=== PATIENT | female | born 1985 | race American Indian/Alaskan Native ===

== ENCOUNTER 2019-02-03 08:29 | Emergency (ER) | payer SELFPAY ==
--- NOTE | 2019-02-03 11:23 | Emergency Department Report ---
ED Headache HPI - General Chief Complaint: Headache Stated Complaint: HBP/HEADACHE Time Seen by Provider: 02/03/19 11:11 Source: patient Exam Limitations: no limitations - History of Present Illness Initial Comments: 33-year-old female with history of hypertension, not currently on any blood pressure medications, presents to ED with headache since 5 AM. Patient states she woke up this morning with headache, also reports associated left-sided chest pain radiating into the left arm with left arm numbness and tingling. Reports mild shortness of breath. Patient reports nausea, no vomiting. Denies fever, abdominal pain, leg pain or swelling. EMS was called and patient was told that her blood pressure was elevated. Patient did not take anything for the headache prior to ED arrival. Patient reports the headache has improved substantially from 04/23 to 11/30 currently. States has not been on blood pressure medication in approximately 5 years. Has no PCP. Denies tobacco use, reports marijuana use. Timing/Duration: 4-6 hours Quality: severe, throbbing Modifying Factors: worse with: exposure to light, movement Associated Symptoms: nausea/vomiting. denies: confusion, fever/chills, stiff neck, vision changes Allergies/Adverse Reactions: Allergies codeine Allergy (Verified 02/03/19 08:40) Unknown Home Medications: Ambulatory Orders Pantoprazole [Protonix] 40 mg PO QDAY #30 tablet 02/03/19 Prednisone [predniSONE 10 mg (6-Day Pack, 21 Tabs)] 10 mg PO .TAPER #1 tab.ds.pk 02/03/19 amLODIPine [Norvasc] 10 mg PO DAILY #30 tab 02/03/19 hydroCHLOROthiazide [Hctz] 12.5 mg PO QDAY #30 capsule 02/03/19 ED Review of Systems ROS: Stated complaint: HBP/HEADACHE Other details as noted in HPI Comment: All other systems reviewed and negative Constitutional: denies: chills, fever Respiratory: shortness of breath Cardiovascular: chest pain Gastrointestinal: nausea. denies: abdominal pain, vomiting Musculoskeletal: other (denies leg pain or swelling) Neurological: headache, paresthesias ED Past Medical Hx - Past Medical History Previous Medical History?: No - Surgical History Past Surgical History?: Yes Additional Surgical History: c section - Social History Smoking Status: Never Smoker Substance Use Type: None - Medications Home Medications: Home Medications Medication Instructions Recorded Confirmed Last Taken Type Pantoprazole [Protonix] 40 mg PO QDAY #30 tablet 02/03/19 Unknown Rx Prednisone [predniSONE 10 mg 10 mg PO .TAPER #1 tab.ds.pk 02/03/19 Unknown Rx (6-Day Pack, 21 Tabs)] amLODIPine [Norvasc] 10 mg PO DAILY #30 tab 02/03/19 Unknown Rx hydroCHLOROthiazide [Hctz] 12.5 mg PO QDAY #30 capsule 02/03/19 Unknown Rx ED Physical Exam - General Limitations: No Limitations General appearance: alert, in no apparent distress - Head Head exam: Present: atraumatic, normocephalic - Eye Eye exam: Present: normal appearance, PERRL, EOMI - ENT ENT exam: Present: mucous membranes moist - Neck Neck exam: Present: normal inspection, full ROM. Absent: tenderness, mening ismus - Respiratory Respiratory exam: Present: normal lung sounds bilaterally. Absent: respiratory distress - Cardiovascular Cardiovascular Exam: Present: regular rate, normal rhythm - GI/Abdominal GI/Abdominal exam: Present: soft. Absent: distended, tenderness - Extremities Exam Extremities exam: Present: normal inspection - Neurological Exam Neurological exam: Present: alert, oriented X3, CN II-XII intact. Absent: motor sensory deficit - Psychiatric Psychiatric exam: Present: normal affect, normal mood - Skin Skin exam: Present: warm, dry, intact, normal color ED Course Vital Signs 02/03/19 02/03/19 02/03/19 08:40 11:37 13:26 Temperature 98.5 F Pulse Rate 65 64 64 Respiratory 16 16 16 Rate Blood Pressure 171/114 Blood Pressure 169/108 152/104 [Left] O2 Sat by Pulse 96 96 97 Oximetry 02/03/19 02/03/19 14:05 15:55 Temperature Pulse Rate 74 Respiratory 16 Rate Blood Pressure 160/105 Blood Pressure 141/88 [Left] O2 Sat by Pulse 96 Oximetry ED Medical Decision Making - Lab Data Result diagrams: 02/03/19 11:20 02/03/19 11:20 - EKG Data -: EKG Interpreted by Wi EKG shows normal: sinus rhythm, axis, intervals, QRS complexes, ST-T waves Rate: normal - EKG Data Interpretation: no acute changes - Radiology Data Radiology results: report reviewed, image reviewed - Medical Decision Making 33 yo F w/ ROBB, chest pain, elevated BP. Hydralazine given for BP control. EKG shows no ST changes, trop normal. Pt currently has no PCP, not on any BP meds. Will admit to hospitalist, Dr Zhao, for further management. - Differential Diagnosis ACS, CVA, HTN emergency Critical Care Time: Yes Critical care time in (mins) excluding proc time.: 35 Critical care attestation.: If time is entered above; I have spent that time in minutes in the direct care of this critically ill patient, excluding procedure time. Critical Care Time: 35 minutes ED Disposition Clinical Impression: Hypertensive emergency, Acute chest pain, Acute headache Disposition: OP ADMIT IP TO THIS HOSP Is pt being admited?: Yes Condition: Stable Instructions: Chest Pain (ED), Hypertension (ED) Prescriptions: hydroCHLOROthiazide [Hctz] 12.5 mg PO QDAY #30 capsule amLODIPine [Norvasc] 10 mg PO DAILY #30 tab Prednisone [predniSONE 10 mg (6-Day Pack, 21 Tabs)] 10 mg PO .TAPER #1 tab.ds.pk Pantoprazole [Protonix] 40 mg PO QDAY #30 tablet Referrals: PENELOPE MAGANAWESTON MD [facility] [Primary Care Provider] - 3-5 Days Time of Disposition: 13:07
[2019-02-03 11:32] LABS: Basophils % (Auto) 0.8 % (0.0-1.8); Eosinophils # (Auto) 0.2 K/mm3 (0.0-0.4); Eosinophils % (Auto) 3.8 % (0.0-4.3); Hematocrit 40.6 % (30.3-42.9); Hemoglobin 13.9 gm/dl (10.1-14.3); Lymphocytes # (Auto) 1.5 K/mm3 (1.2-5.4); Mean Corpuscular HGB Conc 34 % (30-34); Mean Corpuscular Volume 86 fl (79-97); Monocytes # (Auto) 0.3 K/mm3 (0.0-0.8); Monocytes % (Auto) 5.8 % (0.0-7.3); Platelet Count 265 K/mm3 (140-440); Red Cell Distribution Width 13.8 % (13.2-15.2)
[2019-02-03 11:42] LABS: INR 1.02 (0.87-1.13)
[2019-02-03 11:43] LABS: Partial Thromboplastin Time 29.5 Sec. (24.2-36.6)
[2019-02-03 11:51] LABS: BUN/Creatinine Ratio 27; Blood Urea Nitrogen 16 mg/dL (7-17); Calcium 8.6 mg/dL (8.4-10.2); Hemolysis Index 6
[2019-02-03] MEDS ORDERED: APRESOLINE IV ONE (12:07)
--- NOTE | 2019-02-03 13:01 | XRay Report ---
CHEST 1 VIEW 12:15 INDICATION / CLINICAL INFORMATION: MAIN: chest pain SINCE THIS MORNINIG. COMPARISON: None available. FINDINGS: SUPPORT DEVICES: None HEART / MEDIASTINUM: Heart appears mildly enlarged. Pulmonary vascularity appears slightly prominent for this upright view and may indicate mild congestion. LUNGS / PLEURA: No significant pulmonary or pleural abnormality. No pneumothorax. ADDITIONAL FINDINGS: No significant additional findings. IMPRESSION: Mild cardiomegaly and mild congestion are noted, unusual for the patient's age. Signer Name: Lalo Barbour MD Signed: 02/03/2019 12:57 PM Workstation Name: [id number]
--- NOTE | 2019-02-03 13:34 | Cat Scan Report ---
CT BRAIN: 02/03/2019 INDICATION / CLINICAL INFORMATION: headache. COMPARISON: None available. FINDINGS: BRAIN/INTRACRANIAL STRUCTURES: Unenhanced CT images of the brain demonstrate no evidence of acute int racranial abnormality. Ventricles and sulci are normal in size and shape. There is no evidence of acute ischemic injury, hemorrhage, or mass. There are no abnormal extra-axial fluid collections. EXTRACRANIAL STRUCTURES: Unremarkable. IMPRESSION: No acute abnormality. Negative unenhanced CT of the brain. All CT scans at this location are performed using dose reduction to ALARA by means of automated expos ure control. Signer Name: Hermes Ling MD Signed: 02/03/2019 1:29 PM Workstation Name: [id number]
[2019-02-03 13:51] LABS: Chol/HDL Ratio 3.97 %
[2019-02-03] MEDS ORDERED: SOLU-Medrol IV ONE (14:00)
[2019-02-03] MEDS ORDERED: NORVASC PO ONE (14:00)
[2019-02-03] MEDS ORDERED: HCTZ PO ONE (14:00)
--- NOTE | 2019-02-03 15:03 | Event Note ---
Date: 02/03/19 33 YO Female with HTN presents to ED for evaluation of Atypical chest pain. Pt seen and evaluated in ED and treated IAW chest pain protocol. Serial cardiac enzymes, ekg, telemetry were unremarkable for ischemia. Pt D dimer was normal. Pt found to have GERD and uncontrolled HTN. Pt medically optimized and discharged home. Pt instructed to f/u pcp 3-5 days with blood pressure log for medication reconciliation. Pt instructed to F/U cardiology 3-5 days for further testing. Pt counseled regarding low cholesterol and balanced diet, as well as increased physical activity at discharge. Pt counseled regarding cardiac risk factor reduction. - General Limitations: No Limitations General appearance: alert, in no apparent distress - Head Head exam: Present: atraumatic, normocephalic - Eye Eye exam: Present: normal appearance, PERRL, EOMI - ENT ENT exam: Present: mucous membranes moist - Neck Neck exam: Present: normal inspection, full ROM. Absent: tenderness, meningismus - Respiratory Respiratory exam: Present: normal lung sounds bilaterally. Absent: respiratory distress - Cardiovascular Cardiovascular Exam: Present: regular rate, normal rhythm - GI/Abdominal GI/Abdominal exam: Present: soft. Absent: distended, tenderness - Extremities Exam Extremities exam: Present: normal inspection - Neurological Exam Neurological exam: Present: alert, oriented X3, CN II-XII intact. Absent: motor sensory deficit - Psychiatric Psychiatric exam: Present: normal affect, normal mood - Skin Skin exam: Present: warm, dry, intact, normal color
--- NOTE | 2019-02-03 15:21 | XRay Report ---
Cervical spine 6 views INDICATION: Neck pain following injury IMPRESSION: No fracture or subluxation of the cervical spine. Mild discogenic degenerative changes C5 -C6. Signer Name: Rodrigo Cevallos MD Signed: 02/03/2019 3:16 PM Workstation Name: [id number]
[2019-02-03 15:56] VITALS: BP 141/88
== END 2019-02-03 17:43 | disposition admitted as inpatient to this hospital (09) ==
LOC: EDBD → ED 08:29
DX: I16.1 Hypertensive emergency (principal); R07.89 Other chest pain; Z88.6 Allergy status to analgesic agent
CPT/HCPCS: 36415; 70450; 71045; 72040; 80048; 80061; 84484; 84703; 85025; 85379; 85610; 85730; 93005; 93010; 96374; 99285; J2920